=== PATIENT | female | born 1975 | race Caucasian/White ===

== ENCOUNTER 2017-02-25 08:40 | Day surgery (SDC) | payer OTHER ==
[~2017-02-25] VITALS: Ht 160 cm; Wt 81.6 kg
[~2017-02-25 08:40] MED LIST: CEFAZOLIN SOD 1 GM/ ISO 50 ML PREMIX IV ONE
[2017-02-25] MEDS ORDERED: fentaNYL CITRATE/PF 100 MCG/2 ML AMP IVP ONE (08:41)
[2017-02-25] MEDS ORDERED: SEVOFLURANE 15 MIN GAS INH ONE (08:41)
[2017-02-25] MEDS ORDERED: METOPROLOL TARTRATE 5 MG/5 ML VIAL IVP ONE (08:41)
[2017-02-25] MEDS ORDERED: PROPOFOL 200MG/ 20ML VIAL (DIPRIVAN) IV ONE (08:41)
[2017-02-25] MEDS ORDERED: MIDAZOLAM HCL 5 MG/ML VIAL (VERSED) IV ONE (08:41)
[2017-02-25] MEDS ORDERED: NS 1000 ML BAG IV ONE ×2 (08:41)
[2017-02-25] MEDS ORDERED: KETOROLAC TROMETHAMINE 30 MG VIAL IVP ONE (08:41)
[2017-02-25] MEDS ORDERED: ROCURONIUM BROMIDE 10 MG/ML (ZEMURON) IV ONE (08:41)
[2017-02-25] MEDS ORDERED: ONDANSETRON HCL 4 MG/2 ML VIAL IVP ONE (08:41)
[2017-02-25] MEDS ORDERED: CEFAZOLIN 2 GM IVPB PREMIX 50 ML IV ONE (08:41)
[2017-02-25] MEDS ORDERED: LR 1,000 ML IV SCH (13:04)
[2017-02-25] MEDS ORDERED: HYDROmorphone 1 MG INJ. 1 MG/ML AMPUL IVP PRN (13:15)
[2017-02-25] MEDS ORDERED: ONDANSETRON HCL 4 MG/2 ML VIAL IVP PRN ×2 (13:15→15:00)
[2017-02-25] MEDS ORDERED: KETOROLAC TROMETHAMINE 30 MG VIAL IVP PRN (13:15)
[2017-02-25] MEDS ORDERED: HYDROmorphone 2 MG/ML VIAL IVP PRN ×2 (13:15)
[2017-02-25] MEDS ORDERED: MEPERIDINE HCL/PF 25 MG/ML DISP.SYRIN IVP PRN ×2 (13:15)
[2017-02-25] MEDS ORDERED: OXYCODONE/ACETAMINOPHEN 5-325 TABLET PO PRN ×2 (15:00)
[2017-02-25] MEDS ORDERED: HYDROcodone/ACETAMIN 5-325 MG TAB (NORCO/ VICODIN) PO PRN (15:00)
[2017-02-25] MEDS ORDERED: HYDROmorphone 1 MG INJ. 1 MG/ML AMPUL ONE (16:17)
[2017-02-25 16:26] VITALS: BP_SYST 105
[2017-02-25] MEDS ORDERED: SIMETHICONE 80 MG TAB.CHEW PO SCH (17:00)
[2017-02-25] MEDS ORDERED: OXYCODONE/ACETAMINOPHEN 5-325 TABLET ONE (17:14)
== END 2017-02-25 18:20 | disposition home or self-care (01) ==
LOC: SDS 08:40 → SMU 08:40 → SDS 18:20
PROVIDERS: ATTEND Specialist
DX: N80.1 Endometriosis of ovary (principal); D25.9 Leiomyoma of uterus, unspecified
CPT/HCPCS: 58661; 88305; C1727; J0690 ×2; J1170; J1885; J2250; J2405; J2704; J3010; J3490; J7030

== ENCOUNTER 2017-11-23 13:58 | Outpatient (CLI) | payer OTHER ==
[2017-11-23] MEDS ORDERED: IOHEXOL 50 ML IV ONE (14:19)
== END 2017-11-23 21:16 | disposition home or self-care (01) ==
LOC: SRD 13:58
PROVIDERS: ATTEND Specialist
DX: N85.2 Hypertrophy of uterus (principal)
CPT/HCPCS: 76830; 76857; Q9967

== ENCOUNTER 2017-12-09 06:08 | Day surgery (SDC) | payer OTHER ==
[~2017-12-09] VITALS: Ht 160 cm; Wt 81.6 kg
[2017-12-09] MEDS ORDERED: KETOROLAC TROMETHAMINE 30 MG VIAL IVP PRN (07:00)
[2017-12-09] MEDS ORDERED: fentaNYL CITRATE/PF 100 MCG/2 ML AMP IVP PRN ×2 (07:00)
[2017-12-09] MEDS ORDERED: ONDANSETRON HCL 4 MG/2 ML VIAL IVP PRN ×2 (07:00→08:45)
[2017-12-09] MEDS ORDERED: IOHEXOL 50 ML IV ONE (07:42)
[2017-12-09] MEDS ORDERED: PROPOFOL 200MG/ 20ML VIAL (DIPRIVAN) IV ONE (08:30)
[2017-12-09] MEDS ORDERED: SEVOFLURANE 15 MIN GAS INH ONE (08:30)
[2017-12-09] MEDS ORDERED: NS IRRIG SOLN 5000 ML IR ONE (08:30)
[2017-12-09] MEDS ORDERED: MIDAZOLAM HCL 5 MG/ML VIAL (VERSED) IV ONE (08:30)
[2017-12-09] MEDS ORDERED: CEFAZOLIN 1 GM IVPB PREMIX 50 ML IV ONE (08:30)
[2017-12-09] MEDS ORDERED: KETOROLAC TROMETHAMINE 30 MG VIAL ONE (08:30)
[2017-12-09] MEDS ORDERED: fentaNYL CITRATE/PF 100 MCG/2 ML AMP ONE (08:30)
[2017-12-09] MEDS ORDERED: HYDROcodone/ACETAMIN 5-325 MG TAB (NORCO/ VICODIN) PO PRN (08:45)
[2017-12-09] MEDS ORDERED: OXYCODONE/ACETAMINOPHEN 5-325 TABLET PO PRN (08:45)
[2017-12-09 09:34] VITALS: BP_SYST 118
== END 2017-12-09 09:30 | disposition home or self-care (01) ==
LOC: SMU 06:08 → SDS 06:08
PROVIDERS: ATTEND Specialist
DX: N93.8 Other specified abnormal uterine and vaginal bleeding (principal); Z98.890 Other specified postprocedural states; Z98.51 Tubal ligation status; F41.9 Anxiety disorder, unspecified
CPT/HCPCS: 58340; 74740; J0690; J1885; J2250; J2704; J3010; J7120; Q9967

== ENCOUNTER 2018-05-10 16:19 | Outpatient (CLI) | payer OTHER | END 2018-05-10 18:54 | disposition home or self-care (01) | LOC: SLB 16:19 | PROVIDERS: ATTEND Specialist | DX: N93.8 Other specified abnormal uterine and vaginal bleeding (principal) | CPT/HCPCS: 88305 ==

== ENCOUNTER 2018-06-15 09:09 | Outpatient (CLI) | payer OTHER | END 2018-06-15 21:40 | disposition home or self-care (01) | LOC: SLB 09:09 | PROVIDERS: ATTEND Specialist | DX: R93.89 Abnormal findings on diagnostic imaging of other specified body structures (principal) | CPT/HCPCS: 88305 ==

== ENCOUNTER 2018-09-27 09:39 | Outpatient (CLI) | payer OTHER | END 2018-09-27 21:08 | disposition home or self-care (01) | LOC: SLB 09:39 | PROVIDERS: ATTEND Family Medicine | DX: E28.9 Ovarian dysfunction, unspecified (principal); R93.89 Abnormal findings on diagnostic imaging of other specified body structures; N92.6 Irregular menstruation, unspecified; C22.1 Intrahepatic bile duct carcinoma; G51.9 Disorder of facial nerve, unspecified | CPT/HCPCS: 88305 ==

== ENCOUNTER 2019-03-04 15:27 | Outpatient (CLI) | payer OTHER ==
[2019-03-04] MEDS ORDERED: IOHEXOL 50 ML IV ONE (15:45)
== END 2019-03-05 20:14 | disposition home or self-care (01) ==
LOC: SRD 15:27
PROVIDERS: ATTEND Specialist
DX: R79.1 Abnormal coagulation profile (principal); L90.5 Scar conditions and fibrosis of skin; N97.1 Female infertility of tubal origin
CPT/HCPCS: 74740; C1751; Q9967

== ENCOUNTER 2020-09-24 19:08 | Emergency (ER) | payer OTHER ==
[~2020-09-24] VITALS: Ht 160 cm; Wt 99.8 kg
[2020-09-24 19:15] VITALS: BP_SYST 158
[2020-09-24 19:53] LABS: BASOPHILS % (AUTO) 0.3 % (0.0-2.0); HEMATOCRIT 36.3 % (36-48); HEMOGLOBIN 12.3 g/dL (12.0-16.0); LYMPHOCYTES # (AUTO) 1.6 K/uL (1.0-5.5); LYMPHOCYTES % (AUTO) 21.9 % (20.5-51.5); MEAN CORPUSCULAR HEMOGLOBIN 32 pg (27-31); MEAN CORPUSCULAR HGB CONC 34 % (32-36); MEAN CORPUSCULAR VOLUME 94 fL (79.0-98.0); MONOCYTES # (AUTO) 0.4 K/uL (0.0-1.0); NEUTROPHILS # (AUTO) 5.2 K/uL (1.8-7.7); NEUTROPHILS % (AUTO) 71.8 % (40.0-70.0); PLATELET COUNT (AUTO) 277 K/uL (130-430); RED BLOOD CELL COUNT(AUTO) 3.87 MIL/uL (4.2-6.2); RED CELL DISTRIBUTION WIDTH 13.8 % (9.0-15.0); WHITE BLOOD COUNT (AUTO) 7.3 K/uL (4.8-10.8)
[2020-09-24 20:04] LABS: CALCIUM 9.6 mg/dL (8.4-11.0); CREATININE 0.7 mg/dL (0.55-1.30); POTASSIUM 3.6 mmol/L (3.5-5.1)
[2020-09-24 20:09] LABS: ALBUMIN 3.7 g/dL (3.4-4.8); TOTAL BILIRUBIN 0.2 mg/dL (0.0-1.0)
[2020-09-24 20:15] LABS: INR 0.9 (0.8-1.2); PROTHROMBIN TIME 9.3 SECS (9.5-12.5)
[2020-09-24 20:55] VITALS: BP_SYST 158
== END 2020-09-24 20:55 | disposition home or self-care (01) ==
LOC: SED 19:08
DX: R60.0 Localized edema (principal); I10 Essential (primary) hypertension
CPT/HCPCS: 36415; 71045; 80053; 81025; 83880; 84484; 85025; 85610-TC; 85730-TC; 93005; 93971; 99285

== ENCOUNTER 2021-08-13 04:50 | Day surgery (SDC) | payer OTHER ==
[2021-08-09 09:02] LABS: BASOPHILS % (AUTO) 0.2 % (0.0-2.0); EOSINOPHILS % (AUTO) 0.1 % (0.0-4.0); HEMOGLOBIN 12.9 g/dL (12.0-16.0); LYMPHOCYTES # (AUTO) 1.1 K/uL (1.0-5.5); LYMPHOCYTES % (AUTO) 19.4 % (20.5-51.5); MEAN CORPUSCULAR HEMOGLOBIN 31 pg (27-31); MEAN CORPUSCULAR HGB CONC 33 % (32-36); MEAN CORPUSCULAR VOLUME 93 fL (79.0-98.0); MONOCYTES # (AUTO) 0.4 K/uL (0.0-1.0); NEUTROPHILS # (AUTO) 4.3 K/uL (1.8-7.7); NEUTROPHILS % (AUTO) 73.3 % (40.0-70.0); PLATELET COUNT (AUTO) 275 K/uL (130-430); RED BLOOD CELL COUNT(AUTO) 4.19 MIL/uL (4.2-6.2); RED CELL DISTRIBUTION WIDTH 14.6 % (9.0-15.0); WHITE BLOOD COUNT (AUTO) 5.8 K/uL (4.8-10.8)
[2021-08-09 09:40] LABS: BILIRUBIN,URINE NEGATIVE (NEGATIVE); BLOOD, URINE 1+ (NEGATIVE); CLARITY/URINE CLEAR (CLEAR); COLOR,URINE YELLOW (YELLOW); GLUCOSE,URINE 3+ (NEGATIVE); KETONES,URINE NEGATIVE (NEGATIVE); LEUKOCYTE ESTERASE ,URINE NEGATIVE (NEGATIVE); NITRITE, URINE NEGATIVE (NEGATIVE); PROTEIN URINE NEGATIVE (NEGATIVE); UROBILINOGEN,URINE 0.2 (0.2-1.0)
[2021-08-09 10:07] LABS: BACTERIA,URINE FEW /HPF (None Seen); MUCUS,URINE 1+ /LPF (None Seen); RBC,URINE 0-3 /HPF (0-3); WBC,URINE 0-3 /HPF (0-3)
[~2021-08-13] VITALS: Ht 162.6 cm; Wt 93.0 kg
[2021-08-13 06:06] LABS: HCG,QUAL RESULT NEGATIVE (NEGATIVE)
[2021-08-13] MEDS ORDERED: NS IRRIG SOLN 1000 ML IR ONE (07:18)
[2021-08-13] MEDS ORDERED: PROPOFOL 200MG/ 20ML VIAL (DIPRIVAN) IV ONE (07:18)
[2021-08-13] MEDS ORDERED: METOCLOPRAMIDE HCL 10 MG/2 ML VIAL IVP ONE (07:18)
[2021-08-13] MEDS ORDERED: NS 1000 ML IV.SOLN IV ONE (07:18)
[2021-08-13] MEDS ORDERED: LR 1,000 ML IV.SOLN IV ONE (07:18)
[2021-08-13] MEDS ORDERED: SEVOFLURANE 15 MIN GAS INH ONE (07:18)
[2021-08-13] MEDS ORDERED: fentaNYL CITRATE/PF 100 MCG/2 ML AMP IVP ONE (07:18)
[2021-08-13] MEDS ORDERED: MIDAZOLAM HCL 5 MG/5 ML VIAL IVP ONE (07:18)
[2021-08-13] MEDS ORDERED: ONDANSETRON HCL 4 MG/2 ML VIAL IVP ONE (07:18)
[2021-08-13] MEDS ORDERED: GLYCOPYRROLATE 0.2 MG/ML VIAL IJ ONE (07:18)
[2021-08-13] MEDS ORDERED: CEFAZOLIN 2 GM IVPB PREMIX 50 ML IV ONE (07:18)
[2021-08-13] MEDS ORDERED: KETOROLAC TROMETHAMINE 30 MG VIAL IVP PRN (08:00)
[2021-08-13] MEDS ORDERED: HYDROmorphone 1 MG/ML INJ. CARTRIDGE IVP PRN (08:00)
[2021-08-13] MEDS ORDERED: LR 1,000 ML IV SCH (08:00)
[2021-08-13] MEDS ORDERED: ONDANSETRON HCL 4 MG/2 ML VIAL IVP PRN ×2 (08:00→08:15)
[2021-08-13] MEDS ORDERED: HYDROmorphone 2 MG/ML VIAL IVP PRN (08:00)
[2021-08-13] MEDS ORDERED: HYDROcodone/ACETAMIN 5-325 MG TAB (NORCO/ VICODIN) PO PRN (08:15)
[2021-08-13] MEDS ORDERED: OXYCODONE/ACETAMINOPHEN 5-325 TABLET PO PRN ×2 (08:15)
[2021-08-13 10:22] VITALS: BP_SYST 129
== END 2021-08-13 09:40 | disposition home or self-care (01) ==
LOC: SMU 04:50 → SDS 04:50
PROVIDERS: ATTEND Specialist
DX: N95.0 Postmenopausal bleeding (principal); N85.00 Endometrial hyperplasia, unspecified; R93.89 Abnormal findings on diagnostic imaging of other specified body structures; I10 Essential (primary) hypertension; E66.01 Morbid (severe) obesity due to excess calories; E28.9 Ovarian dysfunction, unspecified; Z79.899 Other long term (current) drug therapy; Z20.822 Contact with and (suspected) exposure to COVID-19
CPT/HCPCS: 36415 ×2; 58558; 81000; 82670; 82962; 84703 ×2; 85025; 87426; 87635; 88305; J0690; J2250; J2405; J2704; J2765; J3010; J3490; J7030; J7120; U0003

== ENCOUNTER 2022-07-30 10:06 | Day surgery (SDC) | payer OTHER ==
[2022-07-29 13:36] LABS: BILIRUBIN,URINE NEGATIVE (NEGATIVE); BLOOD, URINE 2+ (NEGATIVE); COLOR,URINE YELLOW (YELLOW); GLUCOSE,URINE 3+ (NEGATIVE); KETONES,URINE NEGATIVE (NEGATIVE); LEUKOCYTE ESTERASE ,URINE NEGATIVE (NEGATIVE); NITRITE, URINE NEGATIVE (NEGATIVE); PROTEIN URINE NEGATIVE (NEGATIVE); UROBILINOGEN,URINE 0.2 (0.2-1.0)
[2022-07-29 13:37] LABS: CLARITY/URINE SLIGHTLY HAZY (CLEAR)
[2022-07-29 13:42] LABS: BASOPHILS % (AUTO) 0.3 % (0.0-2.0); EOSINOPHILS % (AUTO) 0.1 % (0.0-4.0); HEMATOCRIT 23.9 % (36-48); LYMPHOCYTES # (AUTO) 1.1 K/uL (1.0-5.5); LYMPHOCYTES % (AUTO) 16.7 % (20.5-51.5); MEAN CORPUSCULAR HEMOGLOBIN 33 pg (27-31); MEAN CORPUSCULAR HGB CONC 34 % (32-36); MEAN CORPUSCULAR VOLUME 96 fL (79.0-98.0); MONOCYTES # (AUTO) 0.4 K/uL (0.0-1.0); MONOCYTES % (AUTO) 6.1 % (1.7-9.3); NEUTROPHILS # (AUTO) 5.1 K/uL (1.8-7.7); NEUTROPHILS % (AUTO) 76.8 % (40.0-70.0); PLATELET COUNT (AUTO) 268 K/uL (130-430); RED BLOOD CELL COUNT(AUTO) 2.48 MIL/uL (4.2-6.2); RED CELL DISTRIBUTION WIDTH 15.7 % (9.0-15.0); WHITE BLOOD COUNT (AUTO) 6.7 K/uL (4.8-10.8)
[2022-07-29 13:43] LABS: BACTERIA,URINE FEW /HPF (None Seen); MUCUS,URINE 1+ /LPF (None Seen); WBC,URINE 0-3 /HPF (0-3)
[2022-07-29 13:47] LABS: HEMOGLOBIN 8.1 g/dL (12.0-16.0)
[~2022-07-30] VITALS: Ht 160 cm; Wt 95.3 kg
[2022-07-30] MEDS ORDERED: OXYCODONE/ACETAMINOPHEN 5-325 TABLET PO PRN ×2 (16:00)
[2022-07-30] MEDS ORDERED: HYDROcodone/ACETAMIN 5-325 MG TAB (NORCO/ VICODIN) PO PRN (16:00)
[2022-07-30] MEDS ORDERED: ONDANSETRON HCL 4 MG/2 ML VIAL IVP PRN ×2 (16:00→17:15)
[2022-07-30] MEDS ORDERED: MIDAZOLAM HCL 2 MG/2 ML VIAL (VERSED) ONE (16:10)
[2022-07-30] MEDS ORDERED: NS IRRIG SOLN 1000 ML IR ONE (16:10)
[2022-07-30] MEDS ORDERED: METOCLOPRAMIDE HCL 10 MG/2 ML VIAL ONE (16:10)
[2022-07-30] MEDS ORDERED: ceFAZolin SODIUM 2 GM VIAL ONE (16:10)
[2022-07-30] MEDS ORDERED: ROCURONIUM BROMIDE 10 MG/ML (ZEMURON) ONE (16:10)
[2022-07-30] MEDS ORDERED: BUPIVACAINE /EPINEPHRINE/PF 0.5% 30 ML VIAL INJ ONE (16:10)
[2022-07-30] MEDS ORDERED: PROPOFOL 200MG/ 20ML VIAL (DIPRIVAN) IV ONE (16:10)
[2022-07-30] MEDS ORDERED: GLYCOPYRROLATE 0.2 MG/ML VIAL ONE (16:10)
[2022-07-30] MEDS ORDERED: ONDANSETRON HCL 4 MG/2 ML VIAL ONE (16:10)
[2022-07-30] MEDS ORDERED: NEOSTIGMINE METHYLSULFATE 1 MG/ML, 10 ML VIAL ONE (16:10)
[2022-07-30] MEDS ORDERED: fentaNYL CITRATE/PF 100 MCG/2 ML AMP ONE (16:10)
[2022-07-30] MEDS ORDERED: SEVOFLURANE 15 MIN GAS INH ONE (16:10)
[2022-07-30] MEDS ORDERED: LR 1,000 ML IV.SOLN IV ONE (16:10)
[2022-07-30] MEDS ORDERED: SUCCINYLCHOLINE CHLORIDE 20 MG/ML(QUELICIN) ONE (16:10)
[2022-07-30] MEDS ORDERED: LR 1,000 ML IV SCH (17:15)
[2022-07-30] MEDS ORDERED: KETOROLAC TROMETHAMINE 30 MG VIAL IVP PRN (17:15)
[2022-07-30] MEDS ORDERED: HYDROmorphone 2 MG/ML VIAL IVP PRN (17:15)
[2022-07-30] MEDS ORDERED: HYDROmorphone 1 MG/ML INJ. CARTRIDGE IVP PRN (17:15)
[2022-07-30] MEDS ORDERED: ACETAMINOPHEN I.V. 1000 MG 100 ML IV ONE (18:11)
[2022-07-30] MEDS ORDERED: OXYCODONE/ACETAMINOPHEN 5-325 TABLET ONE (20:30)
[2022-07-30] MEDS ORDERED: HYDROmorphone 1 MG/ML INJ. CARTRIDGE ONE (20:31)
[2022-07-30 21:41] VITALS: BP_SYST 124
== END 2022-07-30 22:48 | disposition home or self-care (01) ==
LOC: SDS 10:06 → SMU 10:07 → SDS 21:41
PROVIDERS: ATTEND Specialist
DX: D25.0 Submucous leiomyoma of uterus (principal); N92.1 Excessive and frequent menstruation with irregular cycle; Z20.822 Contact with and (suspected) exposure to COVID-19; Z79.899 Other long term (current) drug therapy
CPT/HCPCS: 81000; 84703; 85025; 87081; 36415 ×2; 93005; 71045; 58674; 58558; 82962; 88305; 87426; J3490 ×2; J2765; J3465; J2405; J2704; J0330; J3010; J1170; J7120; C1727; J0131; J2710